=== PATIENT | female | born 1965 ===

== ENCOUNTER → 2016-09-07 | Outpatient (CLI) | payer OTHER ==
[~2016-09-07] MED LIST: GADOBUTROL 10mMol/10ml INJECTION IV ONE; SALINE FLUSH 10ml SYRINGE ONE
--- NOTE | 2016-09-07 22:41 | DI ---
Indication: ITS.REASON: S49.91XA INJURY right shoulder pain for several months worsening in last month PROCEDURE: MRI SHOULDER RIGHT W/O CONTRAS: Encounter: Initial Comparison: None Technique: Multiplanar multisequence MR imaging of the right shoulder was performed without contrast. Findings: The long head biceps tendon is intact and located within the bicipital groove. The subscapularis tendon is intact. Supraspinatus tendon is intact with some thickening and increased T2 signal intensity distally. No full-thickness or complete tear. The infraspinatus tendon and teres minor tendon are intact. No acute fracture. Moderate acromioclavicular degenerative change. Trace subacromial subdeltoid bursal fluid. Mild degenerative tearing of the superior labrum. Muscular bulk and signal intensity is normal. Impression: 1. Mild degenerative superior labral tearing. 2. Supraspinatus tendinopathy without discrete tear. 3. Mild subacromial subdeltoid bursitis. .
== END ==
LOC: IMA 17:11
PROVIDERS: ATTEND Family Medicine Sports Medicine
DX: M24.811 Other specific joint derangements of right shoulder, not elsewhere classified (principal); M75.51 Bursitis of right shoulder; M75.91 Shoulder lesion, unspecified, right shoulder